=== PATIENT | female | born 1960 | race Caucasian/White ===

== ENCOUNTER 2023-11-08 09:25 | Day surgery (SDC) | payer OTHER ==
[~2023-11-08] VITALS: Ht 165.1 cm; Wt 71.7 kg
[2023-11-08] MEDS ORDERED: MIDAZOLAM HCL 5 MG/5 ML VIAL ONE ×2 (11:58→12:19)
[2023-11-08] MEDS ORDERED: MEPERIDINE 100 MG INJ. 100 MG/ML VIAL ONE (11:58)
[2023-11-08 12:00] VITALS: O2SAT 99
[2023-11-08] MEDS ORDERED: ONDANSETRON HCL 4 MG/2 ML VIAL ONE (12:23)
== END 2023-11-08 13:50 | disposition home or self-care (01) ==
LOC: SDS 09:25 → SMU 09:26 → SDS 13:50
PROVIDERS: ATTEND Internal Medicine
DX: K59.00 Constipation, unspecified (principal); I10 Essential (primary) hypertension; E78.5 Hyperlipidemia, unspecified; M19.90 Unspecified osteoarthritis, unspecified site; Z87.891 Personal history of nicotine dependence; Z90.710 Acquired absence of both cervix and uterus; Z79.82 Long term (current) use of aspirin; Z79.899 Other long term (current) drug therapy
CPT/HCPCS: 45378; 99152; G0378; J2250; J2405; J2175